=== PATIENT | female | born 1980 | race African-American/Black ===

== ENCOUNTER 2021-02-28 13:48 | Inpatient (IN) | payer MEDICAID, OTHER ==
[~2021-02-28] VITALS: Ht 160 cm; Wt 110.7 kg
[2021-02-28] MEDS ORDERED: CEFEPIME 1,000 MG in DEXTROSE 5% WATER 50 ML IV STA (15:02)
[2021-02-28] MEDS ORDERED: VANCOMYCIN 1 G PREMIX 200 ML IV ONE (15:15)
[2021-02-28] MEDS ORDERED: SODIUM CHLORIDE 0.9% 500 ML IV ONE (15:15)
[2021-02-28 15:29] LABS: BASOPHILS % 0.9 % (0.0-2.0); EOSINOPHILS % 3.6 % (0.0-5.0); HEMATOCRIT. 25.2 % (36.0-48.0); LYMPHOCYTES % 18.8 % (20.0-50.0); MEAN CORPUSCULAR HEMOGLOBIN 33.4 pg (28.0-32.0); MEAN CORPUSCULAR VOLUME 105.7 fL (81.0-99.0); MONOCYTES % 13.6 % (2.0-8.0); NEUTROPHILS % 63.1 % (40.0-76.0); PLATELET 73 x1000/uL (130-400); RED BLOOD CELL COUNT 2.39 mill/uL (4.2-5.4); RED CELL DISTRIBUTION WIDTH 27.7 % (11.6-14.6)
[2021-02-28 15:34] LABS: ETHANOL BLOOD < 10 mg/dL
[2021-02-28 15:43] LABS: CREATINE KINASE 208 IU/L (26-192)
[2021-02-28] MEDS ORDERED: MORPHINE SULFATE 4 MG/ML CPJ (NOT FOR IM USE) IV ONE (15:45)
[2021-02-28] MEDS ORDERED: IPRATROPIUM/ALBUTEROL 0.5-3(2.5)MG/3ML NEB HHN PRN (16:15)
[2021-02-28] MEDS ORDERED: NALOXONE HCL 0.4MG/ML VIAL IV PRN (16:15)
[2021-02-28] MEDS ORDERED: DIPHENHYDRAMINE 50MG/ML VIAL IV PRN (16:15)
[2021-02-28] MEDS ORDERED: ONDANSETRON HCL 4MG/2ML INJ IV PRN (16:15)
[2021-02-28] MEDS ORDERED: CLONIDINE 0.1MG TABLET PO PRN (16:15)
[2021-02-28 16:30] LABS: CHLORIDE 111 mEq/L (98-107)
[2021-02-28] MEDS: SODIUM CHLORIDE 0.9% 1,000 ML IV SCH (16:50)
[2021-02-28] MEDS ORDERED: CALCIUM CHLORIDE 1GM/10ML SYR IV ONE (17:00)
[2021-02-28] MEDS ORDERED: LEVOFLOXACIN 500MG PREMIX 100ML IV NR (17:00)
[2021-02-28] MEDS ORDERED: FUROSEMIDE 20MG/2ML VIAL IVP ONE (17:00)
[2021-02-28] MEDS ORDERED: CALCIUM GLUCONATE 100MG/ML 10ML VIAL IV NR (17:30)
[2021-02-28] MEDS ORDERED: INSULIN REGULAR (HUMULIN R) 300UNITS/3ML VIAL IV ONE (17:30)
[2021-02-28] MEDS ORDERED: DEXTROSE 50% WATER 50ML SYRINGE IV ONE (17:30)
[2021-02-28 17:37] LABS: PLATELET ESTIMATE DECREASED
[2021-02-28 20:28] LABS: CLARITY URINE CLEAR (CLEAR); COLOR URINE YELLOW (YELLOW); KETONES URINE NEGATIVE (NEGATIVE); LEUKOCYTE ESTERASE URINE 2+ (NEGATIVE); NITRITE URINE NEGATIVE (NEGATIVE); OCCULT BLOOD URINE 2+ (NEGATIVE); PROTEIN URINE NEGATIVE (NEGATIVE); SPECIFIC GRAVITY URINE 1.015 (1.005-1.030); UROBILINOGEN URINE 0.2 E.U./dL (0.2-1.0)
[2021-02-28 20:33] LABS: CANNABINOID URINE SCREEN NEGATIVE (NEGATIVE); PHENCYCLIDINE URINE SCREEN NEGATIVE (NEGATIVE)
[2021-02-28 20:34] LABS: *AMPHETAMINES SCREEN URINE NEGATIVE (NEGATIVE); *BARBITURATES SCREEN URINE NEGATIVE (NEGATIVE); *COCAINE SCREEN URINE NEGATIVE (NEGATIVE); METHADONE URINE SCREEN NEGATIVE (NEGATIVE)
[2021-02-28 20:50] LABS: *BENZODIAZEPINES SCREEN URINE PRESUMTIVE POSITIVE (NEGATIVE); OPIATES URINE SCREEN PRESUMTIVE POSITIVE (NEGATIVE)
[2021-02-28] MEDS ORDERED: RIFAXIMIN 200MG TABLET PO SCH (21:00)
[2021-02-28] MEDS: LACTULOSE 20G/30ML UDC PO SCH (22:56)
[2021-02-28] MEDS ORDERED: IOHEXOL-300 100 ML BOTTLE ONE (23:37)
[2021-03-01] MEDS: SODIUM CHLORIDE 0.9% 1,000 ML IV SCH ×2 (03:07→12:32)
[2021-03-01] MEDS: MORPHINE SULFATE 2 MG/ML CPJ (NOT FOR IM USE) IV PRN ×2 (03:36→12:31)
[2021-03-01] MEDS: LACTULOSE 20G/30ML UDC PO SCH ×3 (06:43→23:44)
[2021-03-01 09:46] LABS: INR 2.1; PROTHROMBIN TIME 21.5 sec (9.6-11.0)
[2021-03-01] MEDS: RIFAXIMIN 200MG TABLET PO SCH ×2 (11:00→23:44)
[2021-03-01 14:36] VITALS: BP 86/56
[2021-03-01 16:00] VITALS: BP 86/58
[2021-03-01] MEDS ORDERED: LACT10SO3 PO (16:07)
[2021-03-01] MEDS ORDERED: FURO-151 PO (16:07)
[2021-03-01] MEDS ORDERED: FURO80TA87 PO (16:07)
[2021-03-01] MEDS ORDERED: PHYTONADIONE 10MG/ML AMP SUBCUT NR (16:30)
[2021-03-01 17:00] VITALS: BP 92/55
[2021-03-01] MEDS ORDERED: LEVOFLOXACIN 500MG PREMIX 100 ML IV SCH (17:00)
[2021-03-01] MEDS ORDERED: LEVOFLOXACIN 250MG PREMIX 50ML IV SCH (17:00)
[2021-03-01 20:00] VITALS: BP 95/49
[2021-03-02] VITALS (8 sets, daily range): BP systolic 91–103; BP diastolic 51–67
[2021-03-02] MEDS: SODIUM CHLORIDE 0.9% 1,000 ML IV SCH ×2 (00:33→09:13)
[2021-03-02] MEDS: MORPHINE SULFATE 2 MG/ML CPJ (NOT FOR IM USE) IV PRN ×3 (04:50→22:23)
[2021-03-02] MEDS: LACTULOSE 20G/30ML UDC PO SCH ×3 (06:00→22:00)
[2021-03-02 06:34] LABS: CHLORIDE 112 mEq/L (98-107)
[2021-03-02 06:36] LABS: BASOPHILS % 0.9 % (0.0-2.0); EOSINOPHILS % 4.3 % (0.0-5.0); HEMATOCRIT. 22.7 % (36.0-48.0); HEMOGLOBIN. 7.6 g/dL (12.0-16.0); LYMPHOCYTES % 13.8 % (20.0-50.0); MEAN CORPUSCULAR HEMOGLOBIN 34.5 pg (28.0-32.0); MEAN CORPUSCULAR VOLUME 103.3 fL (81.0-99.0); MONOCYTES % 13.2 % (2.0-8.0); NEUTROPHILS % 67.8 % (40.0-76.0); RED CELL DISTRIBUTION WIDTH 26.1 % (11.6-14.6)
[2021-03-02] MEDS: RIFAXIMIN 200MG TABLET PO SCH ×3 (09:00→22:20)
[2021-03-02 10:23] LABS: MEAN PLATELET VOLUME 7.6 fl (7.4-10.4); PLATELET 77 x1000/uL (130-400)
[2021-03-02 14:45] LABS: HEMOGLOBIN 7.3 g/dL (12.0-16.0)
[2021-03-02 14:55] LABS: PROTHROMBIN TIME 19.9 sec (9.6-11.0)
[2021-03-02] MEDS: LEVOFLOXACIN 750MG PREMIX 150 ML IV SCH (16:47)
[2021-03-02] MEDS ORDERED: PHYTONADIONE 10MG/ML AMP SUBCUT SCH (20:00)
[2021-03-03] VITALS (22 sets, daily range): BP systolic 89–117; BP diastolic 48–67
[2021-03-03] MEDS: SODIUM CHLORIDE 0.9% 1,000 ML IV SCH ×2 (03:25→16:27)
[2021-03-03 03:39] LABS: EOSINOPHILS % 4.3 % (0.0-5.0); LYMPHOCYTES % 15.4 % (20.0-50.0); MEAN CORPUSCULAR HEMOGLOBIN 34.3 pg (28.0-32.0); MEAN CORPUSCULAR VOLUME 106.6 fL (81.0-99.0); MEAN PLATELET VOLUME 7.7 fl (7.4-10.4); MONOCYTES % 12.6 % (2.0-8.0); NEUTROPHILS % 66.7 % (40.0-76.0); PLATELET 73 x1000/uL (130-400); RED BLOOD CELL COUNT 1.89 mill/uL (4.2-5.4)
[2021-03-03 03:43] LABS: CHLORIDE 112 mEq/L (98-107)
[2021-03-03 04:22] LABS: HEMOGLOBIN. 6.5 g/dL (12.0-16.0)
[2021-03-03 04:23] LABS: HEMATOCRIT. 20.1 % (36.0-48.0)
[2021-03-03 05:06] LABS: INR 1.8; PROTHROMBIN TIME 18.9 sec (9.6-11.0)
[2021-03-03] MEDS: LACTULOSE 20G/30ML UDC PO SCH ×3 (05:31→21:16)
[2021-03-03] MEDS: RIFAXIMIN 200MG TABLET PO SCH ×2 (08:26→20:38)
[2021-03-03] MEDS ORDERED: LIDOCAINE HCL 1% 20ML VIAL (Pyxis) INJ ONE ×2 (12:51→13:26)
[2021-03-03] MEDS ORDERED: SODIUM BICARBONATE 4% (2.4MEQ) 5ML VIAL IV ONE (12:52)
[2021-03-03] MEDS ORDERED: IOHEXOL-300 100 ML BOTTLE ONE (13:26)
[2021-03-03] MEDS: MORPHINE SULFATE 2 MG/ML CPJ (NOT FOR IM USE) IV PRN ×2 (15:06→20:38)
[2021-03-03] MEDS: FUROSEMIDE 40MG/4ML VIAL IVP SCH (16:25)
[2021-03-03] MEDS: LEVOFLOXACIN 750MG PREMIX 150 ML IV SCH (16:25)
[2021-03-03 21:12] LABS: BASOPHILS % 0.6 % (0.0-2.0); EOSINOPHILS % 3.2 % (0.0-5.0); HEMATOCRIT. 23.4 % (36.0-48.0); HEMOGLOBIN. 7.7 g/dL (12.0-16.0); MEAN CORPUSCULAR HEMOGLOBIN 34.4 pg (28.0-32.0); MEAN CORPUSCULAR VOLUME 103.9 fL (81.0-99.0); MONOCYTES % 13.3 % (2.0-8.0); NEUTROPHILS % 68.9 % (40.0-76.0); RED BLOOD CELL COUNT 2.25 mill/uL (4.2-5.4); RED CELL DISTRIBUTION WIDTH 24.7 % (11.6-14.6)
[2021-03-03 21:59] LABS: MEAN PLATELET VOLUME 7.6 fl (7.4-10.4); PLATELET 75 x1000/uL (130-400)
[2021-03-04] VITALS: BP 111/66
[2021-03-04] MEDS: SODIUM CHLORIDE 0.9% 1,000 ML IV SCH ×2 (00:10→09:11)
[2021-03-04 04:00] VITALS: BP 107/68
[2021-03-04] MEDS: LACTULOSE 20G/30ML UDC PO SCH ×4 (05:12→22:01)
[2021-03-04] MEDS: MORPHINE SULFATE 2 MG/ML CPJ (NOT FOR IM USE) IV PRN ×2 (05:23→16:38)
[2021-03-04 06:17] LABS: BASOPHILS % 0.9 % (0.0-2.0); EOSINOPHILS % 4.2 % (0.0-5.0); HEMATOCRIT. 22.3 % (36.0-48.0); HEMOGLOBIN. 7.4 g/dL (12.0-16.0); LYMPHOCYTES % 14.2 % (20.0-50.0); MEAN CORPUSCULAR HEMOGLOBIN 33.8 pg (28.0-32.0); MEAN CORPUSCULAR VOLUME 101.8 fL (81.0-99.0); MEAN PLATELET VOLUME 7.6 fl (7.4-10.4); MONOCYTES % 14.5 % (2.0-8.0); NEUTROPHILS % 66.2 % (40.0-76.0); PLATELET 72 x1000/uL (130-400); RED BLOOD CELL COUNT 2.19 mill/uL (4.2-5.4); RED CELL DISTRIBUTION WIDTH 24.2 % (11.6-14.6)
[2021-03-04 07:08] LABS: CHLORIDE 112 mEq/L (98-107)
[2021-03-04] MEDS: FUROSEMIDE 40MG/4ML VIAL IVP SCH (09:10)
[2021-03-04] MEDS: RIFAXIMIN 200MG TABLET PO SCH ×2 (09:11→22:02)
[2021-03-04 12:00] VITALS: BP 105/51
[2021-03-04] MEDS ORDERED: FUROSEMIDE 40MG/4ML VIAL IVP NR (13:30)
[2021-03-04 16:00] VITALS: BP 96/60
[2021-03-04] MEDS: LEVOFLOXACIN 750MG PREMIX 150 ML IV SCH (17:27)
[2021-03-04 18:36] LABS: INR 2.1
[2021-03-04 20:00] VITALS: BP_SYST 93; BP_SYST 95; BP_DIAS 56
[2021-03-05] VITALS: BP_SYST 96; BP_DIAS 55; BP_DIAS 56
[2021-03-05 04:00] VITALS: BP 100/56
[2021-03-05] MEDS: LACTULOSE 20G/30ML UDC PO SCH ×3 (06:00→21:13)
[2021-03-05 06:06] LABS: CHLORIDE 109 mEq/L (98-107)
[2021-03-05] MEDS: MORPHINE SULFATE 2 MG/ML CPJ (NOT FOR IM USE) IV PRN ×3 (07:28→20:41)
[2021-03-05 08:00] VITALS: BP 96/54
[2021-03-05] MEDS: RIFAXIMIN 200MG TABLET PO SCH ×2 (08:35→21:13)
[2021-03-05] MEDS: FUROSEMIDE 40MG/4ML VIAL IVP SCH ×2 (10:26→16:42)
[2021-03-05 12:00] VITALS: BP 99/52
[2021-03-05 16:00] VITALS: BP 112/66
[2021-03-05 19:14] LABS: PROTHROMBIN TIME 20.1 sec (9.6-11.0)
[2021-03-05 20:00] VITALS: BP 97/60
[2021-03-06] VITALS: BP 94/72
[2021-03-06 04:00] VITALS: BP 87/45
[2021-03-06] MEDS: LACTULOSE 20G/30ML UDC PO SCH (05:31)
[2021-03-06 08:00] VITALS: BP 101/59
[2021-03-06] MEDS: FUROSEMIDE 40MG/4ML VIAL IVP SCH ×2 (08:13→18:55)
[2021-03-06] MEDS: RIFAXIMIN 200MG TABLET PO SCH (08:13)
[2021-03-06 08:26] LABS: INR 2.2; PROTHROMBIN TIME 22.1 sec (9.6-11.0)
[2021-03-06] MEDS: HYDROCODONE/ACETAMINOPHEN 10/325MG TABLET PO PRN ×2 (10:10→17:14)
[2021-03-06 12:00] VITALS: BP 93/52
[2021-03-06 16:00] VITALS: BP 99/51
[2021-03-06 20:00] VITALS: BP 92/54
[2021-03-06] MEDS: LORAZEPAM 0.5MG TABLET PO PRN (23:54)
[2021-03-07] VITALS: BP 105/60
[2021-03-07] MEDS: MORPHINE SULFATE 2 MG/ML CPJ (NOT FOR IM USE) IV PRN (02:13)
[2021-03-07 04:00] VITALS: BP 100/61
[2021-03-07 07:24] LABS: BASOPHILS % 0.5 % (0.0-2.0); EOSINOPHILS % 4.5 % (0.0-5.0); HEMATOCRIT. 22.6 % (36.0-48.0); HEMOGLOBIN. 7.5 g/dL (12.0-16.0); LYMPHOCYTES % 15.5 % (20.0-50.0); MEAN CORPUSCULAR HEMOGLOBIN 34.7 pg (28.0-32.0); MEAN CORPUSCULAR VOLUME 103.9 fL (81.0-99.0); MONOCYTES % 12.5 % (2.0-8.0); RED BLOOD CELL COUNT 2.17 mill/uL (4.2-5.4); RED CELL DISTRIBUTION WIDTH 21.8 % (11.6-14.6)
[2021-03-07 07:44] LABS: PHOSPHORUS 3.7 mg/dL (2.5-4.9)
[2021-03-07 08:00] VITALS: BP 96/54
[2021-03-07] MEDS: FUROSEMIDE 40MG/4ML VIAL IVP SCH (09:52)
[2021-03-07 12:00] VITALS: BP 96/52
[2021-03-07 14:26] LABS: MEAN PLATELET VOLUME 8.1 fl (7.4-10.4); PLATELET 71 x1000/uL (130-400)
[2021-03-07] MEDS ORDERED: MAGNESIUM 4 G PREMIX 100 ML IV NR (14:30)
[2021-03-07] MEDS: HYDROCODONE/ACETAMINOPHEN 5/325MG TABLET PO PRN (15:25)
[2021-03-07 16:00] VITALS: BP 91/50
[2021-03-07 20:00] VITALS: BP 100/59
[2021-03-08] VITALS: BP 102/63
[2021-03-08] MEDS: LORAZEPAM 0.5MG TABLET PO PRN ×2 (03:28→16:16)
[2021-03-08 04:00] VITALS: BP 93/52
[2021-03-08 08:00] VITALS: BP 99/52
[2021-03-08 08:47] LABS: TOTAL IRON BINDING CAPACITY 139 ug/dL (250-450)
[2021-03-08] MEDS: FUROSEMIDE 100MG/10ML VIAL IVP SCH (09:19)
[2021-03-08] MEDS: IRON SUCROSE COMPLEX 100 MG/5 ML ML IV SCH (09:19)
[2021-03-08] MEDS: HYDROCODONE/ACETAMINOPHEN 5/325MG TABLET PO PRN (09:38)
[2021-03-08 11:49] LABS: VITAMIN B12 SERUM >2000 pg/mL pg/mL (211-911)
[2021-03-08 11:58] LABS: FERRITIN 1408 ng/mL (10-291)
[2021-03-08 12:00] VITALS: BP 95/48
[2021-03-08 16:00] VITALS: BP 99/56
[2021-03-08 20:00] VITALS: BP 94/53
[2021-03-09] VITALS: BP 90/53
[2021-03-09] MEDS: LORAZEPAM 0.5MG TABLET PO PRN (01:04)
[2021-03-09 04:00] VITALS: BP 102/63
[2021-03-09 08:00] VITALS: BP 95/57
[2021-03-09] MEDS: FUROSEMIDE 100MG/10ML VIAL IVP SCH (08:47)
[2021-03-09] MEDS: IRON SUCROSE COMPLEX 100 MG/5 ML ML IV SCH (08:47)
[2021-03-09] MEDS: HYDROCODONE/ACETAMINOPHEN 5/325MG TABLET PO PRN ×2 (09:03→18:26)
[2021-03-09 12:00] VITALS: BP 92/51
[2021-03-09 16:00] VITALS: BP 97/56
[2021-03-09 20:00] VITALS: BP 99/57
[2021-03-10] VITALS: BP 107/64
[2021-03-10 04:00] VITALS: BP 94/54
[2021-03-10] MEDS: HYDROCODONE/ACETAMINOPHEN 10/325MG TABLET PO PRN (05:55)
[2021-03-10 08:00] VITALS: BP 91/53
[2021-03-10 08:53] LABS: BASOPHILS % 0.6 % (0.0-2.0); EOSINOPHILS % 4.7 % (0.0-5.0); HEMATOCRIT. 22.3 % (36.0-48.0); HEMOGLOBIN. 7.5 g/dL (12.0-16.0); MEAN CORPUSCULAR HEMOGLOBIN 34.7 pg (28.0-32.0); MONOCYTES % 13.5 % (2.0-8.0); NEUTROPHILS % 66.2 % (40.0-76.0); RED BLOOD CELL COUNT 2.16 mill/uL (4.2-5.4); RED CELL DISTRIBUTION WIDTH 20.5 % (11.6-14.6)
[2021-03-10] MEDS: FUROSEMIDE 100MG/10ML VIAL IVP SCH (09:27)
[2021-03-10 12:00] VITALS: BP 96/51
[2021-03-10 12:34] LABS: MEAN PLATELET VOLUME 8.8 fl (7.4-10.4)
[2021-03-10 12:35] LABS: PLATELET 69 x1000/uL (130-400)
[2021-03-10] MEDS: LORAZEPAM 0.5MG TABLET PO PRN ×2 (13:04→21:31)
[2021-03-10 16:00] VITALS: BP 106/58
[2021-03-10 20:00] VITALS: BP 102/56
[2021-03-11 00:24] VITALS: BP_SYST 98
[2021-03-11 04:00] VITALS: BP 96/50
[2021-03-11 08:00] VITALS: BP 92/54
[2021-03-11] MEDS: FUROSEMIDE 100MG/10ML VIAL IVP SCH (08:54)
[2021-03-11 09:32] LABS: HEMATOCRIT. 21.8 % (36.0-48.0); HEMOGLOBIN. 7.3 g/dL (12.0-16.0); MEAN CORPUSCULAR HEMOGLOBIN 34.6 pg (28.0-32.0); RED BLOOD CELL COUNT 2.12 mill/uL (4.2-5.4); RED CELL DISTRIBUTION WIDTH 19.9 % (11.6-14.6)
[2021-03-11 10:16] LABS: PLATELET ESTIMATE DECREASED
[2021-03-11 10:17] LABS: MEAN PLATELET VOLUME 8.5 fl (7.4-10.4); PLATELET 59 x1000/uL (130-400)
[2021-03-11 12:00] VITALS: BP 95/51
[2021-03-11] MEDS ORDERED: LORAZEPAM 0.5MG TABLET PO PRN (13:15)
[2021-03-11 16:00] VITALS: BP 92/50
[2021-03-11 20:00] VITALS: BP 90/47
[2021-03-12] VITALS (8 sets, daily range): BP systolic 91–102; BP diastolic 48–58
[2021-03-12 07:16] LABS: MEAN CORPUSCULAR HEMOGLOBIN 34.5 pg (28.0-32.0); MEAN CORPUSCULAR VOLUME 104.3 fL (81.0-99.0); MEAN PLATELET VOLUME 8.9 fl (7.4-10.4); RED BLOOD CELL COUNT 2.01 mill/uL (4.2-5.4); RED CELL DISTRIBUTION WIDTH 19.8 % (11.6-14.6)
[2021-03-12 07:26] LABS: INR 2.3; PROTHROMBIN TIME 22.9 sec (9.6-11.0)
[2021-03-12 07:52] LABS: HEMOGLOBIN. 6.9 g/dL (12.0-16.0)
[2021-03-12 07:53] LABS: PLATELET 62 x1000/uL (130-400)
[2021-03-12] MEDS ORDERED: MORPHINE SULFATE 2 MG/ML CPJ (NOT FOR IM USE) IV PRN (09:00)
[2021-03-12] MEDS ORDERED: HYDROCODONE/ACETAMINOPHEN 5/325MG TABLET PO PRN (09:00)
[2021-03-12] MEDS: FUROSEMIDE 100MG/10ML VIAL IVP SCH (09:00)
[2021-03-12 09:04] LABS: PLATELET ESTIMATE DECREASED
[2021-03-12] MEDS: ACETAMINOPHEN 325MG TABLET PO PRN (09:06)
[2021-03-12] MEDS ORDERED: LACTULOSE 20G/30ML UDC PO PRN (12:45)
[2021-03-12] MEDS: HYDROCODONE/ACETAMINOPHEN 10/325MG TABLET PO PRN (14:11)
[2021-03-12] MEDS: MIDODRINE HCL 5MG TABLET PO SCH ×2 (14:12→20:08)
[2021-03-12] MEDS ORDERED: SORBITOL 70% SOLN 30ML PO NR (15:30)
[2021-03-12] MEDS ORDERED: PHYTONADIONE 10MG/ML AMP SUBCUT NR ×2 (15:30→17:30)
[2021-03-13] VITALS (9 sets, daily range): BP systolic 90–94; BP diastolic 47–59
[2021-03-13] MEDS: FUROSEMIDE 100MG/10ML VIAL IVP SCH (08:40)
[2021-03-13] MEDS: MIDODRINE HCL 5MG TABLET PO SCH ×3 (08:40→16:48)
[2021-03-14] VITALS: BP 91/56
[2021-03-14 00:04] LABS: HEMATOCRIT. 32.4 % (36.0-48.0); MEAN CORPUSCULAR HEMOGLOBIN 33.7 pg (28.0-32.0); MEAN CORPUSCULAR VOLUME 98.9 fL (81.0-99.0); RED BLOOD CELL COUNT 3.27 mill/uL (4.2-5.4); RED CELL DISTRIBUTION WIDTH 20.4 % (11.6-14.6)
[2021-03-14 00:17] LABS: PHOSPHORUS 4.1 mg/dL (2.5-4.9)
[2021-03-14 00:23] LABS: INR 2.1; PROTHROMBIN TIME 21.5 sec (9.6-11.0)
[2021-03-14 00:42] LABS: HEPATITIS B SURFACE ANTIGEN NEGATIVE
[2021-03-14 04:00] VITALS: BP 90/54
[2021-03-14 05:49] LABS: MEAN PLATELET VOLUME 8.4 fl (7.4-10.4); PLATELET 82 x1000/uL (130-400)
[2021-03-14 06:00] LABS: PLATELET ESTIMATE DECREASED
[2021-03-14 08:00] VITALS: BP 87/53
[2021-03-14] MEDS: FUROSEMIDE 100MG/10ML VIAL IVP SCH (08:53)
[2021-03-14] MEDS: MIDODRINE HCL 5MG TABLET PO SCH ×3 (08:54→16:34)
[2021-03-14 12:00] VITALS: BP 92/48
[2021-03-14 16:00] VITALS: BP 86/51
[2021-03-14 20:00] VITALS: BP 105/88
[2021-03-15 00:01] VITALS: BP 88/52
[2021-03-15 04:00] VITALS: BP 95/47
[2021-03-15 06:18] LABS: CHLORIDE 106 mEq/L (98-107)
[2021-03-15 08:00] VITALS: BP 95/50
[2021-03-15] MEDS ORDERED: DEXTROSE 50% WATER 50ML SYRINGE IV NR (08:00)
[2021-03-15] MEDS: FUROSEMIDE 100MG/10ML VIAL IVP SCH (09:00)
[2021-03-15] MEDS: MIDODRINE HCL 5MG TABLET PO SCH ×3 (09:00→17:15)
[2021-03-15 10:06] LABS: ANTI-NUCLEAR ANTIBODIES DIRECT Positive (Negative)
[2021-03-15 11:54] LABS: BASOPHILS % 0.6 % (0.0-2.0); EOSINOPHILS % 2.1 % (0.0-5.0); HEMATOCRIT. 30.9 % (36.0-48.0); HEMOGLOBIN. 10.4 g/dL (12.0-16.0); LYMPHOCYTES % 15.9 % (20.0-50.0); MEAN CORPUSCULAR HEMOGLOBIN 33.6 pg (28.0-32.0); MEAN CORPUSCULAR VOLUME 99.8 fL (81.0-99.0); NEUTROPHILS % 67.4 % (40.0-76.0); RED CELL DISTRIBUTION WIDTH 19.5 % (11.6-14.6)
[2021-03-15 12:00] VITALS: BP 122/51
[2021-03-15 12:49] LABS: MEAN PLATELET VOLUME 8.2 fl (7.4-10.4); PLATELET 91 x1000/uL (130-400); PLATELET ESTIMATE DECREASED
[2021-03-15] MEDS ORDERED: SODIUM POLYSTYRENE SULFONATE 15 G/60 ML BOT PO NR (13:00)
[2021-03-15] MEDS ORDERED: PROPOFOL 200MG/20ML VIAL IV ONE (14:21)
[2021-03-15] MEDS ORDERED: PHENYLEPHRINE HCL 10 MG/ML 1ML (IV VIAL) IV ONE (14:22)
[2021-03-15] MEDS ORDERED: DEXTROSE 50% WATER 50ML SYRINGE IV ONE (14:26)
[2021-03-15] MEDS ORDERED: METOCLOPRAMIDE HCL 10MG/2ML VIAL ONE (14:27)
[2021-03-15] MEDS ORDERED: ONDANSETRON HCL 4MG/2ML INJ ONE (14:27)
[2021-03-15] MEDS ORDERED: FENTANYL CITRATE/PF 50MCG/ML 2ML VIAL ONE (14:38)
[2021-03-15 16:30] VITALS: BP 82/43
[2021-03-15] MEDS: SUCRALFATE 1G TABLET PO SCH ×2 (17:14→20:36)
[2021-03-15] MEDS: PANTOPRAZOLE SODIUM 40 MG/VIAL IV SCH (17:14)
[2021-03-15 20:00] VITALS: BP 89/42
[2021-03-15] MEDS: ACETAMINOPHEN 325MG TABLET PO PRN (20:36)
[2021-03-16] VITALS: BP 92/55
[2021-03-16 04:00] VITALS: BP 85/47
[2021-03-16] MEDS: SUCRALFATE 1G TABLET PO SCH ×4 (06:38→20:26)
[2021-03-16 07:47] LABS: BASOPHILS % 0.7 % (0.0-2.0); EOSINOPHILS % 3.2 % (0.0-5.0); HEMATOCRIT. 26.8 % (36.0-48.0); HEMOGLOBIN. 9.1 g/dL (12.0-16.0); LYMPHOCYTES % 17.8 % (20.0-50.0); MEAN CORPUSCULAR HEMOGLOBIN 33.8 pg (28.0-32.0); MEAN CORPUSCULAR VOLUME 99.9 fL (81.0-99.0); MEAN PLATELET VOLUME 8.3 fl (7.4-10.4); MONOCYTES % 13.5 % (2.0-8.0); NEUTROPHILS % 64.8 % (40.0-76.0); PLATELET 76 x1000/uL (130-400); RED BLOOD CELL COUNT 2.68 mill/uL (4.2-5.4); RED CELL DISTRIBUTION WIDTH 18.9 % (11.6-14.6)
[2021-03-16 07:53] LABS: PHOSPHORUS 4.9 mg/dL (2.5-4.9)
[2021-03-16 08:00] VITALS: BP 91/52
[2021-03-16] MEDS: FUROSEMIDE 100MG/10ML VIAL IVP SCH (08:25)
[2021-03-16] MEDS: PANTOPRAZOLE SODIUM 40 MG/VIAL IV SCH (08:25)
[2021-03-16] MEDS: MIDODRINE HCL 5MG TABLET PO SCH ×3 (08:25→16:18)
[2021-03-16 09:24] LABS: INR 2.1; PROTHROMBIN TIME 20.9 sec (9.6-11.0)
[2021-03-16] MEDS: DEXTROSE 50% WATER 50ML SYRINGE IV NR ×2 (09:50→10:09)
[2021-03-16 12:00] VITALS: BP 92/63
[2021-03-16 13:11] LABS: ACTIN (SMOOTH MUSCLE) ANTIBODY 27 Units (0-19)
[2021-03-16 16:30] VITALS: BP 83/57
[2021-03-16 20:00] VITALS: BP 93/44
[2021-03-17] VITALS: BP 96/55
[2021-03-17 04:00] VITALS: BP 91/46
[2021-03-17 06:20] LABS: BASOPHILS % 0.7 % (0.0-2.0); EOSINOPHILS % 5.2 % (0.0-5.0); HEMATOCRIT. 27.7 % (36.0-48.0); HEMOGLOBIN. 9.2 g/dL (12.0-16.0); MEAN CORPUSCULAR HEMOGLOBIN 33.8 pg (28.0-32.0); MEAN CORPUSCULAR VOLUME 101.7 fL (81.0-99.0); MONOCYTES % 11.5 % (2.0-8.0); NEUTROPHILS % 59.6 % (40.0-76.0); RED BLOOD CELL COUNT 2.72 mill/uL (4.2-5.4); RED CELL DISTRIBUTION WIDTH 19.7 % (11.6-14.6)
[2021-03-17] MEDS: SUCRALFATE 1G TABLET PO SCH ×4 (06:22→20:57)
[2021-03-17] MEDS: HYDROCODONE/ACETAMINOPHEN 10/325MG TABLET PO PRN (06:23)
[2021-03-17 08:00] VITALS: BP 90/57
[2021-03-17 08:26] LABS: MEAN PLATELET VOLUME 8.5 fl (7.4-10.4); PLATELET 73 x1000/uL (130-400)
[2021-03-17] MEDS: PANTOPRAZOLE SODIUM 40 MG/VIAL IV SCH (10:30)
[2021-03-17] MEDS: MIDODRINE HCL 5MG TABLET PO SCH ×3 (10:31→17:07)
[2021-03-17] MEDS: FUROSEMIDE 40MG/4ML VIAL IVP SCH (10:31)
[2021-03-17 12:00] VITALS: BP 103/63
[2021-03-17 16:00] VITALS: BP 98/65
[2021-03-17 20:00] VITALS: BP 90/48
[2021-03-18] VITALS: BP 90/51
[2021-03-18 04:00] VITALS: BP 96/54
[2021-03-18] MEDS: SUCRALFATE 1G TABLET PO SCH ×3 (06:40→17:23)
[2021-03-18 07:59] LABS: BASOPHILS % 0.7 % (0.0-2.0); EOSINOPHILS % 5.1 % (0.0-5.0); HEMATOCRIT. 26.2 % (36.0-48.0); HEMOGLOBIN. 8.8 g/dL (12.0-16.0); LYMPHOCYTES % 22.7 % (20.0-50.0); MEAN CORPUSCULAR HEMOGLOBIN 33.7 pg (28.0-32.0); MEAN CORPUSCULAR VOLUME 100.7 fL (81.0-99.0); MONOCYTES % 12.5 % (2.0-8.0); RED BLOOD CELL COUNT 2.61 mill/uL (4.2-5.4); RED CELL DISTRIBUTION WIDTH 18.7 % (11.6-14.6)
[2021-03-18 08:00] VITALS: BP 97/58
[2021-03-18 09:09] LABS: MEAN PLATELET VOLUME 9.6 fl (7.4-10.4); PLATELET 72 x1000/uL (130-400)
[2021-03-18] MEDS: PANTOPRAZOLE SODIUM 40 MG/VIAL IV SCH (09:21)
[2021-03-18] MEDS: FUROSEMIDE 40MG/4ML VIAL IVP SCH (09:22)
[2021-03-18] MEDS: MIDODRINE HCL 5MG TABLET PO SCH ×3 (09:22→17:22)
[2021-03-18] MEDS ORDERED: SUCR1TAB30 PO (15:26)
[2021-03-18] MEDS ORDERED: FURO-151 PO (15:26)
[2021-03-18] MEDS ORDERED: PROT40 MT (15:26)
[2021-03-18] MEDS ORDERED: MIDO5TAB4 PO (15:26)
[2021-03-18 17:02] VITALS: BP 99/66
== END 2021-03-18 18:44 | disposition home health service (06) | DRG 280 ==
LOC: ER 14:03 → MICUSO 15:26 → 7EST 03-01 13:04
PROVIDERS: ADMIT Internal Medicine; ATTEND Internal Medicine
PROC: 30233K1 Transfusion of Nonautologous Frozen Plasma into Peripheral Vein, Percutaneous Approach (ICD-10-PCS; principal; 2021-03-02)
PROC: 30233N1 Transfusion of Nonautologous Red Blood Cells into Peripheral Vein, Percutaneous Approach (ICD-10-PCS; 2021-03-03)
PROC: 06H03DZ Insertion of Intraluminal Device into Inferior Vena Cava, Percutaneous Approach (ICD-10-PCS; 2021-03-03)
PROC: B5191ZZ Fluoroscopy of Inferior Vena Cava using Low Osmolar Contrast (ICD-10-PCS; 2021-03-03)
PROC: 0DB68ZX Excision of Stomach, Via Natural or Artificial Opening Endoscopic, Diagnostic (ICD-10-PCS; 2021-03-15)
DX: K70.31 Alcoholic cirrhosis of liver with ascites (principal); N17.0 Acute kidney failure with tubular necrosis; E43 Unspecified severe protein-calorie malnutrition; J18.9 Pneumonia, unspecified organism; D68.9 Coagulation defect, unspecified; D69.6 Thrombocytopenia, unspecified; I82.412 Acute embolism and thrombosis of left femoral vein; I95.9 Hypotension, unspecified; E87.1 Hypo-osmolality and hyponatremia; D53.9 Nutritional anemia, unspecified; E87.5 Hyperkalemia; K29.00 Acute gastritis without bleeding; K80.20 Calculus of gallbladder without cholecystitis without obstruction; E66.9 Obesity, unspecified; E87.8 Other disorders of electrolyte and fluid balance, not elsewhere classified; N95.1 Menopausal and female climacteric states; N39.0 Urinary tract infection, site not specified; N18.9 Chronic kidney disease, unspecified; Z20.822 Contact with and (suspected) exposure to COVID-19; D69.59 Other secondary thrombocytopenia; K31.89 Other diseases of stomach and duodenum; F17.200 Nicotine dependence, unspecified, uncomplicated; K44.9 Diaphragmatic hernia without obstruction or gangrene; K72.90 Hepatic failure, unspecified without coma; K76.6 Portal hypertension; Z90.710 Acquired absence of both cervix and uterus; Z95.828 Presence of other vascular implants and grafts; Z88.0 Allergy status to penicillin; Z91.013 Allergy to seafood; Z68.41 Body mass index [BMI] 40.0-44.9, adult; R60.0 Localized edema
CPT/HCPCS: 36415; 37191; 71045; 74177; 76705; 80048; 80053; 80061; 80076; 80305; 80320; 81003; 82140; 82270; 82550; 82607; 82728; 82746; 82962; 83540; 83550; 83605; 83735; 83880; 84100; 84145; 84443; 84450; 84484; 85014; 85018; 85025; 85044; 85049; 85384; 86038; 86705; 86709; 86803; 86850; 86900; 86920; 86927; 87340; 87426; 88305; 88312; 88313; 93005; 93970; 97110; 97162; 97166; 97530; 99285; C1769; C1880; C1893; C9113; J0610; J0692; J1200; J1644; J1940; J1956; J2270; J2370; J2405; J2704; J2765; J3010; J3430; J3475; J3490; J7040; J7060; P9016; P9017; Q9967; G0480

== ENCOUNTER 2021-03-29 17:14 | Inpatient (IN) | payer OTHER ==
[~2021-03-29] VITALS: Ht 160 cm; Wt 117.5 kg
[~2021-03-29 17:14] MED LIST: FURO-151 PO; LACT10SO3 PO; MIDO5TAB4 PO; PROT40 MT; SUCR1TAB30 PO
[2021-03-29] MEDS ORDERED: CEFTRIAXONE 1 G PREMIX 50 ML IV ONE (18:45)
[2021-03-29] MEDS ORDERED: AZITHROMYCIN 500 MG TABLET PO ONE (18:45)
[2021-03-29 18:48] LABS: MEAN CORPUSCULAR HEMOGLOBIN 37.2 pg (28.0-32.0); MEAN CORPUSCULAR VOLUME 107.7 fL (81.0-99.0); MEAN PLATELET VOLUME 8.1 fl (7.4-10.4); RED BLOOD CELL COUNT 0.94 mill/uL (4.2-5.4); RED CELL DISTRIBUTION WIDTH 16.9 % (11.6-14.6)
[2021-03-29 19:00] LABS: HEMOGLOBIN. 3.5 g/dL (12.0-16.0)
[2021-03-29 19:01] LABS: HEMATOCRIT. 10.2 % (36.0-48.0)
[2021-03-29 20:36] LABS: CHLORIDE 104 mEq/L (98-107)
[2021-03-29] MEDS ORDERED: MORPHINE SULFATE 4 MG/ML CPJ (NOT FOR IM USE) IV ONE (21:45)
[2021-03-29 22:54] LABS: PLATELET ESTIMATE DECREAS
[2021-03-29 22:56] LABS: PLATELET 73 x1000/uL (130-400)
[2021-03-30] VITALS (19 sets, daily range): BP systolic 90–111; BP diastolic 55–76
[2021-03-30] MEDS ORDERED: CLONIDINE 0.1MG TABLET PO PRN (02:15)
[2021-03-30] MEDS ORDERED: CEFTRIAXONE 1 G PREMIX 50 ML IV SCH (02:15)
[2021-03-30] MEDS ORDERED: ONDANSETRON HCL 4MG/2ML INJ IV PRN (02:15)
[2021-03-30] MEDS: PANTOPRAZOLE 80 MG in SODIUM CHLORIDE 0.9% 100 ML IV SCH ×2 (04:03→13:28)
[2021-03-30] MEDS: OCTREOTIDE 1,000 MCG in SODIUM CHLORIDE 0.9% 98 ML IV PRN (04:05)
[2021-03-30] MEDS ORDERED: LIDOCAINE HCL 1% 20ML VIAL (Pyxis) INJ ONE (14:31)
[2021-03-30 14:44] LABS: MEAN CORPUSCULAR HEMOGLOBIN 34.4 pg (28.0-32.0); MEAN CORPUSCULAR VOLUME 104.2 fL (81.0-99.0); RED BLOOD CELL COUNT 1.89 mill/uL (4.2-5.4); RED CELL DISTRIBUTION WIDTH 16.3 % (11.6-14.6)
[2021-03-30 14:53] LABS: CHLORIDE 106 mEq/L (98-107)
[2021-03-30 15:00] LABS: HEMATOCRIT 19.7 % (36.0-48.0); HEMOGLOBIN 6.5 g/dL (12.0-16.0); LDL CHOLESTEROL 21 mg/dL (5-100)
[2021-03-30 15:02] LABS: HDL CHOLESTEROL 17 mg/dL (40-59)
[2021-03-30 15:06] LABS: CREATINE KINASE 153 IU/L (26-192)
[2021-03-30 15:30] LABS: INR 2.8; PROTHROMBIN TIME 27.7 sec (9.6-11.0)
[2021-03-30] MEDS: SODIUM CHLORIDE 0.9% 1,000 ML IV SCH (16:59)
[2021-03-30] MEDS: LACTULOSE 20G/30ML UDC PO SCH ×2 (16:59→17:00)
[2021-03-30] MEDS: CEFTRIAXONE 1,000 MG in DEXTROSE 5% WATER 50 ML IV SCH (20:09)
[2021-03-30] MEDS: ACETAMINOPHEN 650MG/20.3ML UDC PO PRN (22:07)
[2021-03-31] VITALS (16 sets, daily range): BP systolic 93–117; BP diastolic 50–78
[2021-03-31] MEDS: PANTOPRAZOLE 80 MG in SODIUM CHLORIDE 0.9% 100 ML IV SCH ×3 (00:31→21:19)
[2021-03-31] MEDS: SODIUM CHLORIDE 0.9% 1,000 ML IV SCH ×2 (05:29→21:20)
[2021-03-31] MEDS: MORPHINE SULFATE 2 MG/ML CPJ (NOT FOR IM USE) IV PRN ×2 (06:29→11:14)
[2021-03-31 07:08] LABS: BASOPHILS % 0.5 % (0.0-2.0); EOSINOPHILS % 2.5 % (0.0-5.0); HEMATOCRIT. 24.1 % (36.0-48.0); HEMOGLOBIN. 8.4 g/dL (12.0-16.0); LYMPHOCYTES % 13.4 % (20.0-50.0); MEAN CORPUSCULAR HEMOGLOBIN 33.9 pg (28.0-32.0); MEAN CORPUSCULAR VOLUME 97.1 fL (81.0-99.0); MEAN PLATELET VOLUME 8.1 fl (7.4-10.4); MONOCYTES % 13.2 % (2.0-8.0); NEUTROPHILS % 70.4 % (40.0-76.0); RED BLOOD CELL COUNT 2.48 mill/uL (4.2-5.4); RED CELL DISTRIBUTION WIDTH 16.4 % (11.6-14.6)
[2021-03-31 07:21] LABS: PLATELET 48 x1000/uL (130-400)
[2021-03-31 07:24] LABS: T4 FREE 0.96 ng/dL (0.76-1.46)
[2021-03-31 07:51] LABS: VITAMIN B12 SERUM >2000 pg/mL pg/mL (211-911)
[2021-03-31 07:58] LABS: FERRITIN 1461 ng/mL (10-291)
[2021-03-31 08:23] LABS: INR 2.7; PROTHROMBIN TIME 27.2 sec (9.6-11.0)
[2021-03-31] MEDS: LACTULOSE 20G/30ML UDC PO SCH ×2 (11:12→17:25)
[2021-03-31 12:06] LABS: PLATELET 46 x1000/uL (130-400)
[2021-03-31] MEDS ORDERED: NALOXONE HCL 0.4MG/ML VIAL IV PRN (20:15)
[2021-03-31] MEDS: CEFTRIAXONE 1,000 MG in DEXTROSE 5% WATER 50 ML IV SCH (21:19)
[2021-04-01] VITALS (12 sets, daily range): BP systolic 93–121; BP diastolic 32–76
[2021-04-01] MEDS: PANTOPRAZOLE 80 MG in SODIUM CHLORIDE 0.9% 100 ML IV SCH ×2 (05:46→16:07)
[2021-04-01 06:37] LABS: BASOPHILS % 0.6 % (0.0-2.0); EOSINOPHILS % 1.9 % (0.0-5.0); HEMATOCRIT. 23.2 % (36.0-48.0); LYMPHOCYTES % 10.7 % (20.0-50.0); MEAN CORPUSCULAR HEMOGLOBIN 33.7 pg (28.0-32.0); MEAN CORPUSCULAR VOLUME 97.5 fL (81.0-99.0); MEAN PLATELET VOLUME 7.5 fl (7.4-10.4); MONOCYTES % 13.5 % (2.0-8.0); NEUTROPHILS % 73.3 % (40.0-76.0); RED BLOOD CELL COUNT 2.38 mill/uL (4.2-5.4); RED CELL DISTRIBUTION WIDTH 16.5 % (11.6-14.6)
[2021-04-01] MEDS: MORPHINE SULFATE 2 MG/ML CPJ (NOT FOR IM USE) IV PRN ×2 (07:56→22:07)
[2021-04-01 08:40] LABS: PLATELET 45 x1000/uL (130-400)
[2021-04-01] MEDS: LACTULOSE 20G/30ML UDC PO SCH ×2 (09:00→16:18)
[2021-04-01] MEDS ORDERED: LACTULOSE 300 ML in WATER FOR IRRIGATION,STERILE 700 ML IR SCH (14:00)
[2021-04-01] MEDS: AZITHROMYCIN 500 MG TABLET PO SCH (15:08)
[2021-04-01] MEDS: SODIUM CHLORIDE 0.9% 1,000 ML IV SCH (15:09)
[2021-04-01] MEDS: CEFTRIAXONE 1,000 MG in DEXTROSE 5% WATER 50 ML IV SCH (20:50)
[2021-04-02] VITALS (16 sets, daily range): BP systolic 86–103; BP diastolic 52–78
[2021-04-02] MEDS: PANTOPRAZOLE 80 MG in SODIUM CHLORIDE 0.9% 100 ML IV SCH ×3 (03:01→22:43)
[2021-04-02 05:52] LABS: CHLORIDE 111 mEq/L (98-107)
[2021-04-02 06:02] LABS: HAPTOGLOBIN <31.0 mg/dL (30-200)
[2021-04-02 06:54] LABS: MEAN CORPUSCULAR HEMOGLOBIN 34.4 pg (28.0-32.0); MEAN CORPUSCULAR VOLUME 100.4 fL (81.0-99.0); MEAN PLATELET VOLUME 8.4 fl (7.4-10.4); RED BLOOD CELL COUNT 1.79 mill/uL (4.2-5.4); RED CELL DISTRIBUTION WIDTH 17.3 % (11.6-14.6)
[2021-04-02] MEDS ORDERED: PHYTONADIONE 10MG/ML AMP SUBCUT NR (07:00)
[2021-04-02 07:04] LABS: HEMOGLOBIN. 6.2 g/dL (12.0-16.0); PLATELET 43 x1000/uL (130-400)
[2021-04-02] MEDS: SODIUM CHLORIDE 0.9% 1,000 ML IV SCH (08:10)
[2021-04-02] MEDS: CYANOCOBALAMIN 1000MCG TABLET PO SCH (09:28)
[2021-04-02] MEDS: FOLIC ACID 1MG TABLET PO SCH (09:28)
[2021-04-02] MEDS: AZITHROMYCIN 500 MG TABLET PO SCH (09:28)
[2021-04-02] MEDS: LACTULOSE 20G/30ML UDC PO SCH ×2 (09:29→17:56)
[2021-04-02] MEDS: RIFAXIMIN 550 MG TABLET PO SCH ×2 (09:29→20:39)
[2021-04-02 12:53] LABS: NUCLEATED RED BLOOD CELLS 1 /100 WBC; PLATELET ESTIMATE MARKEDLY DECREASED
[2021-04-02] MEDS: OCTREOTIDE 1,000 MCG in SODIUM CHLORIDE 0.9% 98 ML IV PRN ×2 (13:57→19:51)
[2021-04-02] MEDS: HYDROMORPHONE HCL/PF 2MG/ML CPJ IV PRN (17:58)
[2021-04-02] MEDS: CEFTRIAXONE 1,000 MG in DEXTROSE 5% WATER 50 ML IV SCH (19:53)
[2021-04-03] VITALS (14 sets, daily range): BP systolic 90–112; BP diastolic 32–72
[2021-04-03] MEDS: SODIUM CHLORIDE 0.9% 1,000 ML IV SCH ×2 (00:50→17:34)
[2021-04-03] MEDS: HYDROMORPHONE HCL/PF 2MG/ML CPJ IV PRN (02:17)
[2021-04-03] MEDS: AZITHROMYCIN 500 MG TABLET PO SCH (09:25)
[2021-04-03] MEDS: LACTULOSE 20G/30ML UDC PO SCH ×2 (09:25→17:33)
[2021-04-03] MEDS: RIFAXIMIN 550 MG TABLET PO SCH ×2 (09:25→20:34)
[2021-04-03] MEDS: FOLIC ACID 1MG TABLET PO SCH (09:25)
[2021-04-03] MEDS: CYANOCOBALAMIN 1000MCG TABLET PO SCH (09:25)
[2021-04-03] MEDS: PANTOPRAZOLE 80 MG in SODIUM CHLORIDE 0.9% 100 ML IV SCH (09:26)
[2021-04-03 11:40] LABS: HEPATITIS B SURFACE ANTIGEN NEGATIVE
[2021-04-03 14:52] LABS: MEAN CORPUSCULAR HEMOGLOBIN 34.4 pg (28.0-32.0); MEAN CORPUSCULAR VOLUME 100.3 fL (81.0-99.0); MEAN PLATELET VOLUME 7.9 fl (7.4-10.4); RED CELL DISTRIBUTION WIDTH 23.2 % (11.6-14.6)
[2021-04-03 15:33] LABS: HEMATOCRIT. 15.1 % (36.0-48.0); HEMOGLOBIN. 5.2 g/dL (12.0-16.0)
[2021-04-03 15:34] LABS: PLATELET 30 x1000/uL (130-400)
[2021-04-03 16:41] LABS: PLATELET ESTIMATE MARKEDLY DECREASED
[2021-04-03] MEDS: SUCRALFATE 1 G/10 ML UDC PO SCH ×2 (18:06→20:34)
[2021-04-03] MEDS: CEFTRIAXONE 1,000 MG in DEXTROSE 5% WATER 50 ML IV SCH (20:34)
[2021-04-04] VITALS (15 sets, daily range): BP systolic 85–114; BP diastolic 53–73
[2021-04-04 08:19] LABS: CHLORIDE 111 mEq/L (98-107)
[2021-04-04] MEDS: PANTOPRAZOLE SODIUM 40 MG/VIAL IV SCH (09:06)
[2021-04-04] MEDS: SUCRALFATE 1 G/10 ML UDC PO SCH ×4 (09:06→21:17)
[2021-04-04] MEDS: AZITHROMYCIN 500 MG TABLET PO SCH (09:06)
[2021-04-04] MEDS: LACTULOSE 20G/30ML UDC PO SCH ×2 (09:06→17:25)
[2021-04-04] MEDS: FOLIC ACID 1MG TABLET PO SCH (09:06)
[2021-04-04] MEDS: RIFAXIMIN 550 MG TABLET PO SCH ×2 (09:06→21:17)
[2021-04-04] MEDS: CYANOCOBALAMIN 1000MCG TABLET PO SCH (09:06)
[2021-04-04 09:10] LABS: MEAN CORPUSCULAR HEMOGLOBIN 33.1 pg (28.0-32.0); MEAN CORPUSCULAR VOLUME 98.1 fL (81.0-99.0); MEAN PLATELET VOLUME 8.2 fl (7.4-10.4); RED BLOOD CELL COUNT 1.79 mill/uL (4.2-5.4); RED CELL DISTRIBUTION WIDTH 20.6 % (11.6-14.6)
[2021-04-04 09:26] LABS: HEMATOCRIT. 17.6 % (36.0-48.0); HEMOGLOBIN. 5.9 g/dL (12.0-16.0)
[2021-04-04] MEDS: SODIUM CHLORIDE 0.9% 1,000 ML IV SCH (11:06)
[2021-04-04] MEDS ORDERED: LACTULOSE 300 ML in WATER FOR IRRIGATION,STERILE 700 ML IR SCH (14:30)
[2021-04-04 15:17] LABS: HEMOGLOBIN. 7.1 g/dL (12.0-16.0); MEAN CORPUSCULAR HEMOGLOBIN 33.6 pg (28.0-32.0); MEAN CORPUSCULAR VOLUME 96.2 fL (81.0-99.0); MEAN PLATELET VOLUME 8.2 fl (7.4-10.4); RED BLOOD CELL COUNT 2.11 mill/uL (4.2-5.4); RED CELL DISTRIBUTION WIDTH 16.6 % (11.6-14.6)
[2021-04-04 15:29] LABS: PLATELET 31 x1000/uL (130-400)
[2021-04-04 15:30] LABS: HEMATOCRIT. 20.3 % (36.0-48.0)
[2021-04-04] MEDS ORDERED: SODIUM POLYSTYRENE SULFONATE 15 G/60 ML BOT PO NR (22:00)
[2021-04-04 22:34] LABS: PLATELET ESTIMATE MARKEDLY DECREASED
[2021-04-05] VITALS (16 sets, daily range): BP systolic 77–118; BP diastolic 45–85
[2021-04-05 01:04] LABS: PLATELET ESTIMATE MARKEDLY DECREASED
[2021-04-05 01:05] LABS: PLATELET 31 x1000/uL (130-400)
[2021-04-05] MEDS: SODIUM CHLORIDE 0.9% 1,000 ML IV SCH ×2 (07:17→19:30)
[2021-04-05 08:52] LABS: MEAN CORPUSCULAR HEMOGLOBIN 34.9 pg (28.0-32.0); MEAN CORPUSCULAR VOLUME 97.8 fL (81.0-99.0); RED BLOOD CELL COUNT 1.76 mill/uL (4.2-5.4); RED CELL DISTRIBUTION WIDTH 18.2 % (11.6-14.6)
[2021-04-05 09:13] LABS: HEMATOCRIT. 17.2 % (36.0-48.0); HEMOGLOBIN. 6.2 g/dL (12.0-16.0); PLATELET 34 x1000/uL (130-400)
[2021-04-05] MEDS: CYANOCOBALAMIN 1000MCG TABLET PO SCH (09:30)
[2021-04-05] MEDS: LACTULOSE 20G/30ML UDC PO SCH ×2 (09:30→17:50)
[2021-04-05] MEDS: RIFAXIMIN 550 MG TABLET PO SCH ×2 (09:31→23:21)
[2021-04-05] MEDS: MIDODRINE HCL 5MG TABLET PO PRN ×3 (09:32→17:51)
[2021-04-05] MEDS: AZITHROMYCIN 500 MG TABLET PO SCH (09:32)
[2021-04-05] MEDS: SUCRALFATE 1 G/10 ML UDC PO SCH ×4 (09:42→20:47)
[2021-04-05] MEDS: PANTOPRAZOLE SODIUM 40 MG/VIAL IV SCH (09:42)
[2021-04-05] MEDS: FOLIC ACID 1MG TABLET PO SCH (09:44)
[2021-04-05 12:38] LABS: NUCLEATED RED BLOOD CELLS 2 /100 WBC; PLATELET ESTIMATE MARKEDLY DECREASED
[2021-04-05] MEDS ORDERED: SODIUM POLYSTYRENE SULFONATE 15 G/60 ML BOT PO SCH (13:00)
[2021-04-06] VITALS (22 sets, daily range): BP systolic 85–106; BP diastolic 49–69
[2021-04-06 06:12] LABS: MEAN CORPUSCULAR HEMOGLOBIN 33.5 pg (28.0-32.0); MEAN CORPUSCULAR VOLUME 96.6 fL (81.0-99.0); MEAN PLATELET VOLUME 8.2 fl (7.4-10.4); RED BLOOD CELL COUNT 2.13 mill/uL (4.2-5.4); RED CELL DISTRIBUTION WIDTH 16.9 % (11.6-14.6)
[2021-04-06 06:47] LABS: CHLORIDE 112 mEq/L (98-107)
[2021-04-06 07:05] LABS: HEMATOCRIT. 20.6 % (36.0-48.0); HEMOGLOBIN. 7.1 g/dL (12.0-16.0)
[2021-04-06 07:06] LABS: PLATELET 29 x1000/uL (130-400); PROTHROMBIN TIME 28.2 sec (9.6-11.0)
[2021-04-06 07:07] LABS: INR 2.9
[2021-04-06] MEDS: SUCRALFATE 1 G/10 ML UDC PO SCH ×5 (07:30→20:41)
[2021-04-06] MEDS: CYANOCOBALAMIN 1000MCG TABLET PO SCH (08:00)
[2021-04-06 08:48] LABS: CLARITY URINE TURBID (CLEAR); COLOR URINE ORANGE (YELLOW); KETONES URINE TRACE (NEGATIVE); LEUKOCYTE ESTERASE URINE 1+ (NEGATIVE); NITRITE URINE POSITIVE (NEGATIVE); OCCULT BLOOD URINE 2+ (NEGATIVE); PROTEIN URINE TRACE (NEGATIVE); SPECIFIC GRAVITY URINE 1.018 (1.005-1.030); UROBILINOGEN URINE 0.2 E.U./dL (0.2-1.0)
[2021-04-06] MEDS: RIFAXIMIN 550 MG TABLET PO SCH ×2 (09:00→20:34)
[2021-04-06] MEDS: FOLIC ACID 1MG TABLET PO SCH (09:00)
[2021-04-06] MEDS: LACTULOSE 20G/30ML UDC PO SCH ×3 (09:00→16:43)
[2021-04-06] MEDS: PANTOPRAZOLE SODIUM 40 MG/VIAL IV SCH (10:23)
[2021-04-06] MEDS: DEXT 5%/0.45% NACL 1000ML 1,000 ML IV SCH (10:23)
[2021-04-06] MEDS ORDERED: LEVOFLOXACIN 500MG PREMIX 100 ML IV NR (12:00)
[2021-04-06] MEDS ORDERED: FUROSEMIDE 40MG/4ML VIAL IVP SCH (13:45)
[2021-04-06 17:25] LABS: PLATELET ESTIMATE MARKEDLY DECREASED
[2021-04-06] MEDS: HYDROMORPHONE HCL/PF 2MG/ML CPJ IV PRN (20:35)
[2021-04-06] MEDS: MIDODRINE HCL 5MG TABLET PO PRN (20:54)
[2021-04-07] VITALS (16 sets, daily range): BP systolic 90–113; BP diastolic 54–76
[2021-04-07 05:12] LABS: MEAN CORPUSCULAR HEMOGLOBIN 33.2 pg (28.0-32.0); MEAN CORPUSCULAR VOLUME 93.5 fL (81.0-99.0); MEAN PLATELET VOLUME 8.3 fl (7.4-10.4); RED BLOOD CELL COUNT 1.94 mill/uL (4.2-5.4)
[2021-04-07 05:27] LABS: HEMATOCRIT. 18.2 % (36.0-48.0); HEMOGLOBIN. 6.5 g/dL (12.0-16.0)
[2021-04-07 05:36] LABS: INR 2.2; PROTHROMBIN TIME 21.9 sec (9.6-11.0)
[2021-04-07] MEDS: DEXT 5%/0.45% NACL 1000ML 1,000 ML IV SCH ×2 (06:49→12:36)
[2021-04-07] MEDS: LACTULOSE 20G/30ML UDC PO SCH ×3 (10:14→17:18)
[2021-04-07] MEDS: PANTOPRAZOLE SODIUM 40 MG/VIAL IV SCH (10:14)
[2021-04-07] MEDS: FOLIC ACID 1MG TABLET PO SCH (10:14)
[2021-04-07] MEDS: RIFAXIMIN 550 MG TABLET PO SCH ×2 (10:14→21:00)
[2021-04-07] MEDS: LEVOFLOXACIN 250MG PREMIX 50 ML IV SCH (10:18)
[2021-04-07] MEDS: CYANOCOBALAMIN 1000MCG TABLET PO SCH (10:18)
[2021-04-07] MEDS: SUCRALFATE 1 G/10 ML UDC PO SCH ×5 (10:18→21:38)
[2021-04-07 14:00] LABS: NUCLEATED RED BLOOD CELLS 2 /100 WBC
[2021-04-07 14:01] LABS: PLATELET ESTIMATE MARKEDLY DECREASED
[2021-04-07 14:02] LABS: PLATELET 31 x1000/uL (130-400)
[2021-04-07] MEDS: ACETAMINOPHEN 650MG/20.3ML UDC PO PRN (17:19)
[2021-04-07] MEDS ORDERED: MORPHINE SULFATE 2 MG/ML CPJ (NOT FOR IM USE) IV PRN (19:00)
[2021-04-07] MEDS ORDERED: LORAZEPAM 2MG/ML CPJ IV PRN (19:15)
[2021-04-08] VITALS (18 sets, daily range): BP systolic 97–113; BP diastolic 58–79
[2021-04-08] MEDS: DEXT 5%/0.45% NACL 1000ML 1,000 ML IV SCH ×3 (05:32→20:02)
[2021-04-08 05:39] LABS: HEMATOCRIT. 22.1 % (36.0-48.0); HEMOGLOBIN. 7.9 g/dL (12.0-16.0); MEAN CORPUSCULAR HEMOGLOBIN 32.1 pg (28.0-32.0); MEAN PLATELET VOLUME 8.5 fl (7.4-10.4); RED BLOOD CELL COUNT 2.45 mill/uL (4.2-5.4); RED CELL DISTRIBUTION WIDTH 17.6 % (11.6-14.6)
[2021-04-08 05:42] LABS: INR 2.3
[2021-04-08 05:48] LABS: PLATELET 29 x1000/uL (130-400)
[2021-04-08] MEDS: SUCRALFATE 1 G/10 ML UDC PO SCH ×5 (08:24→21:00)
[2021-04-08] MEDS: PANTOPRAZOLE SODIUM 40 MG/VIAL IV SCH (08:24)
[2021-04-08] MEDS: FOLIC ACID 1MG TABLET PO SCH (08:25)
[2021-04-08] MEDS: LACTULOSE 20G/30ML UDC PO SCH ×2 (08:25→17:00)
[2021-04-08] MEDS: RIFAXIMIN 550 MG TABLET PO SCH ×3 (08:25→21:00)
[2021-04-08] MEDS: CYANOCOBALAMIN 1000MCG TABLET PO SCH (08:25)
[2021-04-08] MEDS: LEVOFLOXACIN 250MG PREMIX 50 ML IV SCH (11:01)
[2021-04-08 17:26] LABS: NUCLEATED RED BLOOD CELLS 3 /100 WBC; PLATELET ESTIMATE MARKEDLY DECREASED
[2021-04-09] VITALS (13 sets, daily range): BP systolic 92–107; BP diastolic 45–75
[2021-04-09 07:18] LABS: INR 2.4; PROTHROMBIN TIME 24.5 sec (9.6-11.0)
[2021-04-09 07:22] LABS: HEMATOCRIT. 21.2 % (36.0-48.0); HEMOGLOBIN. 7.3 g/dL (12.0-16.0); MEAN CORPUSCULAR HEMOGLOBIN 32.2 pg (28.0-32.0); MEAN CORPUSCULAR VOLUME 93.8 fL (81.0-99.0); MEAN PLATELET VOLUME 8.7 fl (7.4-10.4); RED BLOOD CELL COUNT 2.26 mill/uL (4.2-5.4); RED CELL DISTRIBUTION WIDTH 21.8 % (11.6-14.6)
[2021-04-09 07:40] LABS: PLATELET 29 x1000/uL (130-400)
[2021-04-09] MEDS: CYANOCOBALAMIN 1000MCG TABLET PO SCH (08:00)
[2021-04-09] MEDS: LACTULOSE 20G/30ML UDC PO SCH ×2 (09:19→17:00)
[2021-04-09] MEDS: PANTOPRAZOLE SODIUM 40 MG/VIAL IV SCH (09:19)
[2021-04-09] MEDS: RIFAXIMIN 550 MG TABLET PO SCH ×3 (09:19→21:13)
[2021-04-09] MEDS: FOLIC ACID 1MG TABLET PO SCH (09:19)
[2021-04-09] MEDS: MIDODRINE HCL 5MG TABLET PO PRN (09:20)
[2021-04-09] MEDS: SUCRALFATE 1 G/10 ML UDC PO SCH ×4 (09:26→21:13)
[2021-04-09] MEDS: LEVOFLOXACIN 250MG PREMIX 50 ML IV SCH (11:43)
[2021-04-09 13:27] LABS: PLATELET ESTIMATE MARKEDLY DECREASED
[2021-04-09] MEDS ORDERED: LACTULOSE 300 ML in WATER FOR IRRIGATION,STERILE 700 ML IR NR (14:00)
[2021-04-09] MEDS: DEXT 5%/0.45% NACL 1000ML 1,000 ML IV SCH (17:15)
[2021-04-10] VITALS (16 sets, daily range): BP systolic 87–114; BP diastolic 55–67
[2021-04-10] MEDS: DEXT 5%/0.45% NACL 1000ML 1,000 ML IV SCH ×3 (00:35→18:24)
[2021-04-10] MEDS: SUCRALFATE 1 G/10 ML UDC PO SCH ×4 (05:41→23:15)
[2021-04-10 06:07] LABS: MEAN CORPUSCULAR HEMOGLOBIN 32.4 pg (28.0-32.0); MEAN CORPUSCULAR VOLUME 94.2 fL (81.0-99.0); MEAN PLATELET VOLUME 8.7 fl (7.4-10.4); RED BLOOD CELL COUNT 2.02 mill/uL (4.2-5.4); RED CELL DISTRIBUTION WIDTH 24.7 % (11.6-14.6)
[2021-04-10 06:17] LABS: INR 2.5; PROTHROMBIN TIME 24.9 sec (9.6-11.0)
[2021-04-10 06:42] LABS: HEMOGLOBIN. 6.6 g/dL (12.0-16.0)
[2021-04-10 06:44] LABS: CHLORIDE 108 mEq/L (98-107)
[2021-04-10] MEDS: LACTULOSE 20G/30ML UDC PO SCH ×2 (09:00→17:00)
[2021-04-10] MEDS: RIFAXIMIN 550 MG TABLET PO SCH ×2 (09:00→21:00)
[2021-04-10] MEDS: FOLIC ACID 1MG TABLET PO SCH (09:00)
[2021-04-10] MEDS ORDERED: PHYTONADIONE 10MG/ML AMP SUBCUT SCH (09:00)
[2021-04-10 10:50] LABS: PLATELET ESTIMATE MARKEDLY DECREASED
[2021-04-10 10:51] LABS: PLATELET 31 x1000/uL (130-400)
[2021-04-10] MEDS: PANTOPRAZOLE SODIUM 40 MG/VIAL IV SCH (10:56)
[2021-04-10] MEDS: LEVOFLOXACIN 250MG PREMIX 50 ML IV SCH (10:56)
[2021-04-10 12:27] LABS: HEPATITIS B SURFACE ANTIGEN NEGATIVE
[2021-04-11] VITALS (69 sets, daily range): BP systolic 79–107; BP diastolic 49–66
[2021-04-11] MEDS: MIDODRINE HCL 5MG TABLET PO PRN (00:52)
[2021-04-11] MEDS ORDERED: SODIUM CHLORIDE 0.9% 250 ML IV NR (03:30)
[2021-04-11 05:51] LABS: INR 2.8; PROTHROMBIN TIME 27.8 sec (9.6-11.0)
[2021-04-11 05:53] LABS: MEAN CORPUSCULAR HEMOGLOBIN 31.4 pg (28.0-32.0); MEAN CORPUSCULAR VOLUME 90.2 fL (81.0-99.0); RED BLOOD CELL COUNT 1.91 mill/uL (4.2-5.4); RED CELL DISTRIBUTION WIDTH 19.1 % (11.6-14.6)
[2021-04-11] MEDS ORDERED: ALBUMIN HUMAN 25GM/100ML (25%) IV NR (06:00)
[2021-04-11 06:48] LABS: HEMATOCRIT. 17.2 % (36.0-48.0)
[2021-04-11 07:10] LABS: PLATELET 31 x1000/uL (130-400)
[2021-04-11 07:13] LABS: NUCLEATED RED BLOOD CELLS 3 /100 WBC; PLATELET ESTIMATE MARKEDLY DECREASED
[2021-04-11] MEDS ORDERED: LIDOCAINE HCL 1% 20ML VIAL (Pyxis) INJ ONE (07:35)
[2021-04-11] MEDS: PHENYLEPHRINE 100 MG in DEXT 5% WATER 240 ML IV PRN ×2 (08:00→17:49)
[2021-04-11] MEDS ORDERED: PHENYLEPHRINE 50 MG in DEXT 5% WATER 245 ML IV PRN (08:30)
[2021-04-11] MEDS: FOLIC ACID 1MG TABLET PO SCH (11:09)
[2021-04-11] MEDS: PANTOPRAZOLE SODIUM 40 MG/VIAL IV SCH (11:09)
[2021-04-11] MEDS: LACTULOSE 20G/30ML UDC PO SCH ×2 (11:09→16:59)
[2021-04-11] MEDS: RIFAXIMIN 550 MG TABLET PO SCH ×2 (11:09→21:00)
[2021-04-11] MEDS: DEXT 5%/0.45% NACL 1000ML 1,000 ML IV SCH ×2 (11:10→22:57)
[2021-04-11] MEDS: SUCRALFATE 1 G/10 ML UDC PO SCH ×3 (11:12→21:00)
[2021-04-11 16:10] LABS: HEMATOCRIT 20.7 % (36.0-48.0)
[2021-04-11 16:11] LABS: HEMOGLOBIN 7.2 g/dL (12.0-16.0)
[2021-04-12] VITALS (107 sets, daily range): BP systolic 59–152; BP diastolic 35–102
[2021-04-12] MEDS: PHENYLEPHRINE 100 MG in DEXT 5% WATER 240 ML IV PRN ×3 (00:37→14:25)
[2021-04-12 05:28] LABS: MEAN CORPUSCULAR VOLUME 89.1 fL (81.0-99.0); MEAN PLATELET VOLUME 8.9 fl (7.4-10.4); RED BLOOD CELL COUNT 1.94 mill/uL (4.2-5.4); RED CELL DISTRIBUTION WIDTH 18.3 % (11.6-14.6)
[2021-04-12 05:56] LABS: HEMATOCRIT. 17.3 % (36.0-48.0); HEMOGLOBIN. 6.2 g/dL (12.0-16.0)
[2021-04-12 05:57] LABS: PLATELET 39 x1000/uL (130-400)
[2021-04-12] MEDS: LACTULOSE 20G/30ML UDC PO SCH ×2 (07:43→07:45)
[2021-04-12] MEDS: FOLIC ACID 1MG TABLET PO SCH (07:44)
[2021-04-12] MEDS: RIFAXIMIN 550 MG TABLET PO SCH ×2 (07:44→21:31)
[2021-04-12] MEDS: PANTOPRAZOLE SODIUM 40 MG/VIAL IV SCH (08:24)
[2021-04-12 10:01] LABS: HEMOGLOBIN 7.3 g/dL (12.0-16.0)
[2021-04-12 10:14] LABS: NUCLEATED RED BLOOD CELLS 7 /100 WBC
[2021-04-12 10:15] LABS: PLATELET ESTIMATE MARKEDLY DECREASED
[2021-04-12] MEDS ORDERED: NOREPINEPHRINE 8MG/250ML PMX 250 ML IV PRN (14:00)
[2021-04-12] MEDS ORDERED: NOREPINEPHRINE 8 MG in DEXTROSE 5% WATER 250 ML IV PRN (14:15)
[2021-04-12] MEDS: DEXT 5%/0.45% NACL 1000ML 1,000 ML IV SCH (14:18)
[2021-04-12] MEDS ORDERED: VASOPRESSIN 20 UNIT in SODIUM CHLORIDE 0.9% 99 ML IV PRN (15:30)
[2021-04-12 15:52] LABS: INR 3.4
[2021-04-12] MEDS: NOREPINEPHRINE 32 MG in DEXT 5% WATER 218 ML IV PRN ×2 (16:24→21:11)
[2021-04-12] MEDS: SUCRALFATE 1 G/10 ML UDC PO SCH (21:31)
== END 2021-04-12 22:50 | disposition short-term general hospital (02) | DRG 279 ==
LOC: ER 17:14 → 5EST 22:28 → ENRESERV 22:35 → CANRESERV 22:35 → ENRESERV 22:48 → EDBEDREQSVC 23:29 → EDBEDREQTM 23:29 → MICUNO 04-11 08:39
PROVIDERS: ADMIT Internal Medicine; ATTEND Internal Medicine
PROC: 30233N1 Transfusion of Nonautologous Red Blood Cells into Peripheral Vein, Percutaneous Approach (ICD-10-PCS; 2021-03-29)
PROC: 02H633Z Insertion of Infusion Device into Right Atrium, Percutaneous Approach (ICD-10-PCS; principal; 2021-03-30)
PROC: 30233R1 Transfusion of Nonautologous Platelets into Peripheral Vein, Percutaneous Approach (ICD-10-PCS; 2021-04-06)
PROC: 02HV33Z Insertion of Infusion Device into Superior Vena Cava, Percutaneous Approach (ICD-10-PCS; 2021-04-11)
PROC: 30233K1 Transfusion of Nonautologous Frozen Plasma into Peripheral Vein, Percutaneous Approach (ICD-10-PCS; 2021-04-11)
PROC: 5A1D70Z Performance of Urinary Filtration, Intermittent, Less than 6 Hours Per Day (ICD-10-PCS; 2021-04-12)
DX: K72.90 Hepatic failure, unspecified without coma (principal); R57.9 Shock, unspecified; G93.41 Metabolic encephalopathy; E43 Unspecified severe protein-calorie malnutrition; N17.9 Acute kidney failure, unspecified; J18.9 Pneumonia, unspecified organism; D68.9 Coagulation defect, unspecified; D69.6 Thrombocytopenia, unspecified; R18.8 Other ascites; E87.5 Hyperkalemia; N18.9 Chronic kidney disease, unspecified; D53.9 Nutritional anemia, unspecified; K74.60 Unspecified cirrhosis of liver; Z20.822 Contact with and (suspected) exposure to COVID-19; F17.200 Nicotine dependence, unspecified, uncomplicated; D63.1 Anemia in chronic kidney disease; K80.20 Calculus of gallbladder without cholecystitis without obstruction; K76.6 Portal hypertension; I12.9 Hypertensive chronic kidney disease with stage 1 through stage 4 chronic kidney disease, or unspecified chronic kidney disease; Z88.0 Allergy status to penicillin; Z91.013 Allergy to seafood; Z79.84 Long term (current) use of oral hypoglycemic drugs; Z79.899 Other long term (current) drug therapy; Z86.718 Personal history of other venous thrombosis and embolism; Z68.42 Body mass index [BMI] 45.0-49.9, adult; Z95.828 Presence of other vascular implants and grafts; Z78.1 Physical restraint status; Z87.440 Personal history of urinary (tract) infections
CPT/HCPCS: 36415; 71045; 76700; 76937; 80048; 80053; 80061; 80076; 81003; 82140; 82248; 82270; 82550; 82607; 82728; 82746; 83010; 83540; 83550; 83615; 83880; 84132; 84439; 84443; 84484; 85014; 85018; 85025; 85027; 85044; 86705; 86709; 86803; 86850; 86880; 86900; 86920; 86927; 87340; 87426; 93005; 93970; 99285; A6261; C1725; C1752; C9113; J0696; J1170; J1940; J1956; J2060; J2270; J2354; J2370; J2405; J3430; J3490; J7030; J7040; J7050; J7060; P9016; P9017; P9021; P9034; P9047; U0003; U0005; A4315